=== PATIENT | male | born 1965 | race African-American/Black ===

== ENCOUNTER 2019-02-04 22:48 | Emergency (ER) | payer MEDICAID ==
[~2019-02-04] VITALS: Ht 170.2 cm; Wt 68.0 kg
[2019-02-05] MEDS ORDERED: IBUPROFEN 600MG TABLET PO STA (01:49)
[2019-02-05] MEDS ORDERED: LIDOCAINE HCL/PF 1% 10 MG/ML 5ML VIAL IJ ONE ×2 (02:00→03:15)
[2019-02-05] MEDS ORDERED: TETANUS, DIPHTHERIA, PERTUSSIS VAC/PF 0.5ML (>7YR OLD) IM ONE (02:00)
[2019-02-05 05:00] VITALS: BP 147/82
== END 2019-02-05 05:00 | disposition home or self-care (01) ==
LOC: ER 22:48
DX: S61.219A Laceration without foreign body of unspecified finger without damage to nail, initial encounter (principal); W19.XXXA Unspecified fall, initial encounter; Y93.02 Activity, running; Y92.89 Other specified places as the place of occurrence of the external cause; Y99.8 Other external cause status
CPT/HCPCS: 12002; 73130; 90471; 90715; 99283; J3490; Z7610

== ENCOUNTER 2019-02-12 14:23 | Emergency (ER) | payer MEDICAID ==
[~2019-02-12] VITALS: Ht 167.6 cm; Wt 68.0 kg
[2019-02-12 14:38] VITALS: BP 119/44
== END 2019-02-12 15:04 | disposition home or self-care (01) ==
LOC: ER 14:23
DX: S61.411D Laceration without foreign body of right hand, subsequent encounter (principal); F12.10 Cannabis abuse, uncomplicated; F17.200 Nicotine dependence, unspecified, uncomplicated; X58.XXXD Exposure to other specified factors, subsequent encounter
CPT/HCPCS: 99282

== ENCOUNTER 2019-02-16 11:02 | Emergency (ER) | payer MEDICAID ==
[~2019-02-16] VITALS: Ht 165.1 cm; Wt 68.1 kg
[2019-02-16 12:57] VITALS: BP 118/73
== END 2019-02-16 12:58 | disposition home or self-care (01) ==
LOC: ER 11:17
DX: Z48.02 Encounter for removal of sutures (principal)
CPT/HCPCS: 99281